=== PATIENT | female | born 1945 ===

== ENCOUNTER → 2017-08-03 12:28 | Outpatient (CLI) | payer MEDICARE, OTHER, SELFPAY ==
--- NOTE | 2017-08-03 | CYSPIN_PTH ---
PATIENT: VU CAR LOC: [facility] U#:[id number] AGE/SX: 80/F ROOM: RE08/03/[address]: Dr. Jorge Gonsales MD : 1945 BED: DIS: SPEC #: [id number] RECD: 08/03/17 14:44 STATUS: JACINTA PRABHA #: [id number] NATALI: 08/03/17 00:[address]: Jorge Gonsales DEPT: CYTOLOGY RECD BY: Han Cage Tissues: Urine Procedures: Pap Stain (control) Special Stain Group II Cytospin Fluid HEADER OPERATION: Not noted PRE-OP DIAGNOSIS: History of bladder CA TISSUE SUBMITTED: Urine for cytology DIAGNOSIS CYTOLOGY Urine for cytology (cytospin and cell block): Atypical urothelial cells noted. Acute inflammation. See comment. AM:kiarra 08/04/17 COMMENT Repeat cytology is suggested after of inflammation if clinically indicated. Case has been reviewed in consultation with Dr. Lott who concurs with the above diagnosis. IDC:[facility] CYTOLOGY STUDY Slides are reviewed. CYTOLOGY GROSS Received is 35 ml of clear yellow fluid labeled with the patient's name and and designated per the requisition as urine. Submitted for cytology preparation. 08/03/17 TC:5 CPT: 67673
[2017-08-03 12:31] LABS: Cytology, Body Fluid / CSF SEE PATHOLOGY REPORT
== END ==
PROVIDERS: Visit Provider Urology
DX: Z85.51 Personal history of malignant neoplasm of bladder (principal)
CPT/HCPCS: 88108; 88313